=== PATIENT | female | born 1940 | race Caucasian/White ===

== ENCOUNTER → 2016-12-07 | Outpatient (CLI) | payer MEDICARE, MEDICAID ==
[~2016-12-07] MED LIST: ACEB400C PO; ASP81CT PO; CHOL500019 PO; CLIN-62 PO; CLOT15CR6 TOP; ENAL20TA PO; FURO20TA4 PO; GLMP2T PO; HCT25T PO; HYDR-2890 PO; HYDR-3720 PO; METH20TA PO; METH5TAB6 PO; MILN100T PO; MILN50TA6 PO; MPR22TI TP; PRAM0.5T4 PO; RABE20TA PO; RNT150T PO; SIMV40TA4 PO; TRAM50TA2 PO; TRIA15CR TP; VERA180C5 PO
[2016-12-07 07:37] LABS: BILIRUBIN,URINE NEGATIVE (NEGATIVE); KETONES,URINE NEGATIVE (NEGATIVE); LEUKOCYTE ESTERASE ,URINE 3+ (NEGATIVE); NITRITE,URINE NEGATIVE (NEGATIVE); PH,URINE 6.5 (5-9); PROTEIN,URINE NEGATIVE (NEGATIVE); UROBILINOGEN,URINE NORMAL (NORMAL)
[2016-12-07 08:00] LABS: WBC,URINE >100 /HPF
[2016-12-07 08:01] LABS: SQUAMOUS EPITHELIAL CELL,UR 0-2 /HPF
== END ==
LOC: LABNPT 07:32
PROVIDERS: ATTEND Family Medicine
DX: R41.82 Altered mental status, unspecified (principal)
CPT/HCPCS: 81000; 87088; 87186

== ENCOUNTER 2016-12-15 15:46 | Emergency (ER) | payer MEDICARE, MEDICAID ==
[~2016-12-15] VITALS: Ht 162.6 cm; Wt 113.9 kg
--- NOTE | 2016-12-15 16:06 | ED Fall/Injury ---
General Stated Complaint: FALL Source: patient Exam Limitations: physical impairment History of Present Illness Time seen by provider: 15:46 Initial Comments Here from [facility] with report of fall. She was found on the floor with a goose egg on her head on the left side above the left brow. No report of loss of consciousness. Patient is nonverbal due to advanced dementia. No other obvious injury noted or reported. Patient in c-collar due to nonverbal status. Occurred: just prior to arrival (30 minutes to 1 hour ago suspected) Severity: mild Injuries/Pain Location: head Context: unknown Loss of Consciousness: unsure Allergies and Home Medications Allergies Coded Allergies: Codeine (Unverified Allergy, 04/20/12) HALLICUNICATION NSAIDS (Non-Steroidal Anti-Inflamma (Unverified Allergy, 04/20/12) CAUSED KIDNEY FAILURE Home Medications Acebutolol Hcl 400 Mg Capsule, 400 MG PO DAILY, (Reported) Aspirin 81 Mg Chew, 81 MG PO DAILY, (Reported) Betamethasone/Clotrimazole 15 Gm Cream.gm., 0 TOP BID, (Reported) APPLY TO AFFECTED AREA(S) Cholecalciferol (Vitamin D3) 50,000 Unit Capsule, 50,000 UNIT PO WEEKLY, ( Reported) Clindamycin Hcl 150 Mg Cap, 1 EACH PO TID, (Reported) Enalapril Maleate 20 Mg Tablet, 20 MG PO BID, (Reported) Glimepiride 2 Mg Tablet, 1 TAB PO DAILY, (Reported) Hydrochlorothiazide 25 Mg Tab, 25 MG PO DAILY, (Reported) Hydrocodone Bit/Acetaminophen 1 Each Tablet, 1 EACH PO Q6H PRN, (Reported) Hydrocodone Bit/Acetaminophen 1 Ea Tab, 1 EA PO Q6HR PRN, #60 Ref 1 (Reported) Methimazole 5 Mg Tablet, 5 MG PO DAILY, (Reported) Methylphenidate Hcl 20 Mg Tablet, 20 MG PO TID, (Reported) Milnacipran Hcl 50 Mg Tablet, 50 MG PO DAILY, (Reported) Pramipexole Di-Hcl 0.5 Mg Tablet, 0.5 MG PO HS, (Reported) Rabeprazole Sodium 20 Mg Tablet.dr, 20 MG PO DAILY, (Reported) Ranitidine Hcl 150 Mg Tablet, 1 TAB PO BID, (Reported) Simvastatin 40 Mg Tablet, 40 MG PO HS, (Reported) Tramadol Hcl 50 Mg Tablet, 50-100 MG PO Q6H PRN, (Reported) Verapamil Hcl 180 Mg Cap24h.pel, 180 MG PO BID, (Reported) Constitutional: see HPI Skin: see HPI, change in color Other Unable to complete review of systems due to her underlying advanced dementia and nonverbal status. Past Cuwsxwz-Kavbfr-Vlgrfj Hx Patient Social History Alcohol Use: Denies Use Recreational Drug Use: No Smoking Status: Unknown if Ever Smoked Immunizations Up To Date Tetanus Booster (TDap): Unknown Date of Influenza Vaccine: Jan 05, 2012 Surgeries History of Surgeries: Yes Surgeries: Orthopedic Cardiovascular History of Cardiac Disorders: Yes Cardiac Disorders: High Cholesterol, Hypertension Reproductive System Hx Reproductive Disorders: No (HYSTERECTOMY) Endocrine History of Endocrine Disorders: Yes Endocrine Disorders: Diabetes, Insulin dep Reviewed Nursing Assessment Reviewed/Agree w Nursing PMH: Yes Family Medical History Significant Family History: No Pertinent Family Hx Physical Exam Vital Signs Vital Sign - Last 12Hours 12/15/16 15:46 Temp 97.2 Pulse 57 Resp 14 B/P (MAP) 145/77 Pulse Ox 96 O2 Delivery Room Air Capillary Refill : General Appearance: WD/WN, no apparent distress HEENT: PERRL/EOMI, TMs normal, pharynx normal Neck: non-tender, other (c-collar in place) Cardiovascular: regular rate, rhythm, no murmur Respiratory: lungs clear, normal breath sounds Gastrointestinal: non tender, soft Back: normal inspection, no CVA tenderness, no vertebral tenderness Extremities: normal range of motion, non-tender, normal inspection Neurologic/Psychiatric: alert, disoriented x 3, other (nonverbal overall) Skin: warm/dry, ecchymosis, other (2 x 2 centimeter hematoma to the left forehead above the left brow.) Comments Patient is nonverbal making GCS score low. Patient appears to be at baseline per report. Lynette Coma Score Best Eye Response: (4) Open Spontaneously Best Verbal Response: (1) No Verbal Response Best Motor Response: (5) Localizes to Pain [place] Total: 10 Progress/Results/Core Measures Results/Orders My Orders Orders - FANY ELLIOTT MD Ct Head/Cervical Spine Wo (12/15/16 15:54) Vital Signs/I&O Vital Sign - Last 12Hours 12/15/16 15:46 Temp 97.2 Pulse 57 Resp 14 B/P (MAP) 145/77 Pulse Ox 96 O2 Delivery Room Air Progress Note : Progress Note Seen and evaluated. CT head and neck ordered. Patient still and c-collar. Monitor patient. C collar removed at [address] head and neck did not show any acute findings. I did discuss the findings with the daughter at bedside. Discharged back to [facility] with return precautions. Daughter verbalized understanding instructions and agreement with plan. Diagnostic Imaging Diagonstic Imaging: CT Plain Films/CT/US/NM/MRI: c-spine, head Comments VIA [facility]. [place], [place] NAME: MARTHA GUAMAN [facility] REC#: [id number] PT STATUS: REG ER : 1940 PHYSICIAN: FANY ELLIOTT MD ADMIT DATE: 12/15/16/ER Draft Date of Exam:12/15/16 CT HEAD/CERVICAL SPINE WO PROCEDURE: CT head and CT cervical spine without contrast. TECHNIQUE: Multiple contiguous axial images were obtained through the brain and cervical spine without the use of intravenous contrast. Sagittal and coronal reformations through the cervical spine were then performed. INDICATION: Fall. FINDINGS: CT head: There is a small supraorbital hematoma in the left frontal region within the scalp. No intracranial hemorrhage. There are mild periventricular and deep white matter hypodensities compatible with chronic microvascular ischemic changes. No evidence of brain edema or mass effect. No hydrocephalus. No extra-axial fluid collection is seen. The orbits, paranasal sinuses and mastoid air cells appear clear. CT cervical spine: There is reversal of the lordotic curvature in the cervical spine. There is minimal anterior translation of C3 over C4 vertebra and minimal anterior translation of C7 over T1. There is satisfactory alignment at the facet joints, however. There is no widening of the predental space. There is satisfactory alignment at the lateral masses of C1 and C2 and atlantooccipital joints. The vertebral body heights are preserved. There is multilevel significant disc height loss in the mid to lower cervical spine involving C4/C5, C5/C6 and C6/C7. At these levels, there are prominent posterior osteophytes also seen. There are prominent uncovertebral osteophytes at C4/C5 level, particularly on the right side resulting in neural foraminal narrowing on the right at C4/C5 of moderate to severe degree and bilateral moderate foraminal stenosis at C5/C6 level. No fracture is seen. There is suggestion of prior left hemithyroidectomy and heterogeneous appearance of the right thyroid lobe with enlargement and calcifications, probably related to multinodular goiter. IMPRESSION: 1. CT head: No intracranial hemorrhage. There is a small left frontal scalp hematoma. 2. CT cervical spine: Advanced degenerative changes with mild malalignment at the posterior spinal line as described, also probably degenerative. No fracture seen. Dictated on workstation # [id number] Dict: 12/15/16 1638 Trans: 12/15/16 1706 LINDA [id number] Interpreted by: ANGY PACHECO MD Electronically signed by: Departure Impression Impression: Primary Impression: Minor head injury without loss of consciousness Qualified Codes: S09.90XA - Unspecified injury of head, initial encounter Disposition: 01 HOME, SELF-CARE Condition: Stable Departure-Patient Inst. Decision time for Depature: 17:28 Referrals: GHASSAN STEIN DO (PCP/Family) Primary Care Physician Patient Instructions: Minor Head Injury (DC) Add. Discharge Instructions: You may use ice packs over affected area as needed for pain control or swelling. Continue previous home medications. Follow-up with your Dr. in a few days for recheck. Return for worse pain, vomiting, breathing problems or other concerns as needed. FANY ELLIOTT MD Dec 15, 2016 16:06
--- NOTE | 2016-12-15 17:07 | Diagnostic Imaging Report ---
PROCEDURE: CT head and CT cervical spine without contrast. TECHNIQUE: Multiple contiguous axial images were obtained through the brain and cervical spine without the use of intravenous contrast. Sagittal and coronal reformations through the cervical spine were then performed. INDICATION: Fall. FINDINGS: CT head: There is a small supraorbital hematoma in the left frontal region within the scalp. No intracranial hemorrhage. There are mild periventricular and deep white matter hypodensities compatible with chronic microvascular ischemic changes. No evidence of brain edema or mass effect. No hydrocephalus. No extra-axial fluid collection is seen. The orbits, paranasal sinuses and mastoid air cells appear clear. CT cervical spine: There is reversal of the lordotic curvature in the cervical spine. There is minimal anterior translation of C3 over C4 vertebra and minimal anterior translation of C7 over T1. There is satisfactory alignment at the facet joints, however. There is no widening of the predental space. There is satisfactory alignment at the lateral masses of C1 and C2 and atlantooccipital joints. The vertebral body heights are preserved. There is multilevel significant disc height loss in the mid to lower cervical spine involving C4/C5, C5/C6 and C6/C7. At these levels, there are prominent posterior osteophytes also seen. There are prominent uncovertebral osteophytes at C4/C5 level, particularly on the right side resulting in neural foraminal narrowing on the right at C4/C5 of moderate to severe degree and bilateral moderate foraminal stenosis at C5/C6 level. No fracture is seen. There is suggestion of prior left hemithyroidectomy and heterogeneous appearance of the right thyroid lobe with enlargement and calcifications, probably related to multinodular goiter. IMPRESSION: 1. CT head: No intracranial hemorrhage. There is a small left frontal scalp hematoma. 2. CT cervical spine: Advanced degenerative changes with mild malalignment at the posterior spinal line as described, also probably degenerative. No fracture seen. Dictated by: Dictated on workstation # [id number]
[2016-12-15 17:45] VITALS: BP 145/77
== END 2016-12-15 17:45 | disposition home or self-care (01) ==
LOC: EDUNIT# 15:46 → ER 15:47
DX: S09.90XA Unspecified injury of head, initial encounter (principal); E78.00 Pure hypercholesterolemia, unspecified; I10 Essential (primary) hypertension; E11.9 Type 2 diabetes mellitus without complications; F03.90 Unspecified dementia, unspecified severity, without behavioral disturbance, psychotic disturbance, mood disturbance, and anxiety; Z90.710 Acquired absence of both cervix and uterus; Z79.82 Long term (current) use of aspirin; Z79.84 Long term (current) use of oral hypoglycemic drugs; W18.30XA Fall on same level, unspecified, initial encounter; Y92.129 Unspecified place in nursing home as the place of occurrence of the external cause
CPT/HCPCS: 70450; 72125; 99283